=== PATIENT | female | born 1940 | race Caucasian/White ===

== ENCOUNTER → 2021-03-15 | Outpatient (CLI) | payer OTHER ==
[~2021-03-15] MED LIST: ASPI81CH PO; ATOR10; ESOM20; HYDACE5 PO; LOSA25 PO; LOSHYD PO; METO25ER PO; NORT25; Naprosyn500 MG PO; Norco 5-325 Ta1 EACH PO; Omeprazole20 M1; Prilosec Otc20 MG; Simvastatin20 MG PO; TIMO.5OPSO BOTHEYES; TRAM50 PO; VITAMIN D32000 UNI1 PO
== END ==
LOC: PLD 14:36 → LAB SHORT 14:36
DX: R21 Rash and other nonspecific skin eruption (principal)
CPT/HCPCS: 88312

== ENCOUNTER 2021-06-29 09:46 | Day surgery (SDC) | payer OTHER ==
[~2021-06-29] VITALS: Ht 165.1 cm; Wt 77.4 kg
== END 2021-06-29 14:44 | disposition home or self-care (01) ==
LOC: ORSCSDS 09:46
PROVIDERS: Internal Medicine Gastroenterology
PROC: 0DBP8ZX Excision of Rectum, Via Natural or Artificial Opening Endoscopic, Diagnostic (ICD-10-PCS; principal; 2021-06-29 13:30)
PROC: 0DBK8ZX Excision of Ascending Colon, Via Natural or Artificial Opening Endoscopic, Diagnostic (ICD-10-PCS; principal; 2021-06-29 13:30)
PROC: 0DBH8ZX Excision of Cecum, Via Natural or Artificial Opening Endoscopic, Diagnostic (ICD-10-PCS; principal; 2021-06-29 13:30)
DX: Z12.11 Encounter for screening for malignant neoplasm of colon (principal); Z86.010 Personal history of colon polyps; D12.2 Benign neoplasm of ascending colon; D12.0 Benign neoplasm of cecum; D12.8 Benign neoplasm of rectum; K57.30 Diverticulosis of large intestine without perforation or abscess without bleeding; I10 Essential (primary) hypertension; K21.9 Gastro-esophageal reflux disease without esophagitis; Z79.899 Other long term (current) drug therapy; Z79.82 Long term (current) use of aspirin
CPT/HCPCS: 82947; 88305; J2704; J7120

== ENCOUNTER → 2022-04-16 | Outpatient (CLI) | payer OTHER ==
[2022-04-16 13:52] LABS: BASOPHILS ABSOLUTE AUTO 0.04 K/mm3 (0.00-0.23); BASOPHILS PERCENT AUTO 1 % (0-2); EOSINOPHILS PERCENT AUTO 5 % (0-6); Hematocrit 36.4 % (33.0-51.0); Hemoglobin 11.9 g/dL (11.5-16.0); IMMATURE GRAN ABSOLUTE AUTO 0.01 K/mm3 (0.00-0.10); IMMATURE GRAN PERCENT AUTO 0 % (0-1); LYMPHOCYTES ABSOLUTE AUTO 1.46 K/mm3 (0.84-5.20); LYMPHOCYTES PERCENT AUTO 37 % (21-46); MONOCYTES ABSOLUTE AUTO 0.32 K/mm3 (0.16-1.47); MONOCYTES PERCENT AUTO 8 % (4-13); Mean Corpuscular HGB 29.8 pg (26.0-34.0); Mean Corpuscular HGB Conc 32.7 g/dL (31.5-36.5); Mean Corpuscular Volume 91 fL (80-100); Mean Platelet Volume 10.6 fL (9.1-12.4); NEUTROPHILS ABSOLUTE AUTO 1.94 K/mm3 (1.96-9.15); NEUTROPHILS PERCENT AUTO 49 % (41-73); Platelet Count 189 K/mm3 (150-400); RDW Coefficient Variation 14.1 % (11.7-14.2); RDW Standard Deviation 47.1 fL (35.1-46.3); Red Blood Cell Count 3.99 M/mm3 (3.80-5.20); White Blood Cell Count 3.97 K/mm3 (4.00-11.30)
[2022-04-16 14:28] LABS: Albumin, Blood 3.5 g/dL (3.4-5.0); Bilirubin, Total 0.6 mg/dL (0.1-1.0); Bun/Creatinine Ratio 16.9 (12.0-20.0); Creatinine, Blood 0.77 mg/dL (0.40-1.00); Globulin, Blood 3.5 g/dL (2.2-4.0); Potassium, Blood 4.2 mmol/L (3.5-5.5)
== END ==
LOC: LAB SHORT 13:48 → LAB 13:48
PROVIDERS: Physician Assistant
DX: M54.50 Low back pain, unspecified (principal); R35.0 Frequency of micturition
CPT/HCPCS: 80053; 85025

== ENCOUNTER 2024-12-27 09:38 | Day surgery (SDC) | payer OTHER ==
[2024-12-27] VITALS (13 sets, daily range): BP systolic 92–162; BP diastolic 62–98
[~2024-12-27] VITALS: Ht 157.5 cm; Wt 75.6 kg
[~2024-12-27 09:38] MED LIST changes: +ALEN70 PO; +ALEVAZOL56.7 G1 TOP; +ATOR10 PO; +BENADRYL25 MG PO; -LOSA25 PO; +LOSA50 PO; +LOSARTAN-HCTZ1 EACH PO; +MULVITA PO; +OMEP20ER PO; -Prilosec Otc20 MG
[2024-12-27] MEDS ORDERED: CeFAZolin Sodium 2,000 MG in NS 100 ML IV SCH ×2 (10:25→21:00)
[2024-12-27] MEDS ORDERED: Acetaminophen 500 MG Tab PO SCH ×2 (10:25→16:00)
[2024-12-27] MEDS ORDERED: Lactated Ringer's 1,000 ML IV SCH ×3 (10:25→14:15)
[2024-12-27] MEDS ORDERED: Chlorhexidine Mouth Care 15 ML UDC MT SCH (10:25)
[2024-12-27] MEDS ORDERED: Tranexamic Acid 1,000 MG in NS 100 ML IV SCH (10:25)
[2024-12-27] MEDS ORDERED: OxyCODONE HCL 10 MG TABCR PO SCH (10:25)
[2024-12-27] MEDS ORDERED: Ropivacaine 0.5% HCl/Pf 123.125 MG,EPINEPHrine HCL 0.25 MG,Ketorolac Tromethamine 15 MG... INFIL SCH (10:25)
[2024-12-27] MEDS ORDERED: Bupivacaine 0.5% HCl 5 MG/ML 30MLVIAL ONE (10:40)
[2024-12-27] MEDS ORDERED: Midazolam HCl 1MG / ML 2ML Vial ONE (10:40)
[2024-12-27] MEDS ORDERED: FentaNYL Citrate 50 MCG/ML 2 ML Injection ONE (10:40)
[2024-12-27] MEDS ORDERED: Ondansetron HCl 2 MG / ML 2ML Vial ONE (10:40)
[2024-12-27] MEDS ORDERED: propofoL 60 ML IV ONE (10:40)
[2024-12-27] MEDS ORDERED: Dexamethasone Sod Phos 10 MG/ML 1ML VIAL ONE (10:40)
[2024-12-27] MEDS ORDERED: Midazolam HCl 1MG / ML 2ML Vial IV ONE (11:10)
[2024-12-27] MEDS ORDERED: Lidocaine HCl 1% 5 ML SYR INJ ONE (11:10)
[2024-12-27] MEDS ORDERED: FentaNYL Citrate 50 MCG/ML 2 ML Injection IV PRN ×2 (11:10→11:15)
[2024-12-27] MEDS ORDERED: Ondansetron HCl 2 MG / ML 2ML Vial IV PRN ×2 (11:15→14:05)
[2024-12-27] MEDS ORDERED: Albuterol 2.5 MG/3 ML VIAL INH PRN (11:15)
[2024-12-27] MEDS ORDERED: Citric Acid/Sodium Citrate 30 ML BTL PO ONE (11:15)
[2024-12-27] MEDS ORDERED: Phenylephrine HCl 100 MCG/ML-NS 10MLSYR (1MG/10ML) ONE ×2 (13:23→14:32)
[2024-12-27] MEDS ORDERED: OxyCODONE HCL 5 MG TAB PO PRN ×2 (14:00→14:05)
[2024-12-27] MEDS ORDERED: Prochlorperazine Edisylate 10 mg Vial IV PRN (14:05)
[2024-12-27] MEDS ORDERED: Bisacodyl 10 MG Supp PR PRN (14:05)
[2024-12-27] MEDS ORDERED: HYDROmorphone HCl/Pf 1MG SYR IV PRN (14:05)
[2024-12-27] MEDS ORDERED: DiphenhydrAMINE HCL 25 MG Cap PO PRN (14:10)
[2024-12-27] MEDS ORDERED: Promethazine HCl 25 MG Tab PO PRN (14:10)
[2024-12-27] MEDS ORDERED: FLU VACC TS2024-25(6MOS UP)/PF 45 MCG/0.5 ML SYRINGE IM SCH (14:10)
[2024-12-27] MEDS ORDERED: Metoclopramide HCl 5MG / ML 2ML Vial IV PRN (14:10)
[2024-12-27] MEDS ORDERED: Magnesium Hydroxide Conc 10 ML UDC PO PRN (14:15)
[2024-12-27] MEDS ORDERED: Clotrimazole 1% Cream 15 GM Tube TOP PRN (14:15)
[2024-12-27] MEDS ORDERED: Vancomycin HCL 1,000 MG in NS 250 ML IV ONE (14:25)
[2024-12-27] MEDS ORDERED: Ketorolac Tromethamine 15mg Vial IV SCH (18:00)
--- NOTE | 2024-12-27 19:31 | NUR ---
SHIFT SUMMARY POD 0-L LEO. PRINEO DRESSING C/D/I. PT ORIGIONALLY NOT ABLE TO FEEL BLE UPON ARRIVING TO FLOOR @1600 R/T SPINAL, HOWEVER PT IS ABLE TO MOVE BLE & LIFT LEGS OFF BED NOW. DENIES N/T. CAP REFILL <3 SEC. STRONG PULSE. TOLERATING PO, DENIES N/V. REPORTS NO PAIN, MAYBE 2-01/31 IN LOW BACK R/T CHRONIC PAIN, MEDICATED W/SCHEDULED TORADOL. BS SHOWED 422 & PT HADNT VOIDED UNTIL APPROX 1900 W/200ML URINE IN BSC, TOOK 2P ASSIST W/GB & FWW. PT HASNT WORKED W/THERAPY. CALL LIGHT IN REACH.
[2024-12-27] MEDS ORDERED: Docusate Sodium 100 MG Cap PO SCH (21:00)
[2024-12-28 05:08] VITALS: BP 134/74
[2024-12-28] MEDS ORDERED: Omeprazole 20 MG CapCR PO SCH (06:00)
[2024-12-28 06:38] LABS: BASOPHILS ABSOLUTE AUTO 0.02 K/mm3 (0.00-0.23); BASOPHILS PERCENT AUTO 0 % (0-2); EOSINOPHILS PERCENT AUTO 0 % (0-6); Hematocrit 30.2 % (33.0-51.0); Hemoglobin 10.1 g/dL (11.5-16.0); IMMATURE GRAN ABSOLUTE AUTO 0.04 K/mm3 (0.00-0.10); IMMATURE GRAN PERCENT AUTO 0 % (0-1); LYMPHOCYTES ABSOLUTE AUTO 1.05 K/mm3 (0.84-5.20); LYMPHOCYTES PERCENT AUTO 10 % (21-46); MONOCYTES ABSOLUTE AUTO 0.71 K/mm3 (0.16-1.47); MONOCYTES PERCENT AUTO 7 % (4-13); Mean Corpuscular HGB 31.1 pg (26.0-34.0); Mean Corpuscular HGB Conc 33.4 g/dL (31.5-36.5); Mean Corpuscular Volume 93 fL (80-100); Mean Platelet Volume 10.5 fL (9.1-12.4); NEUTROPHILS ABSOLUTE AUTO 8.32 K/mm3 (1.96-9.15); NEUTROPHILS PERCENT AUTO 82 % (41-73); Platelet Count 189 K/mm3 (150-400); RDW Coefficient Variation 13.5 % (11.7-14.2); Red Blood Cell Count 3.25 M/mm3 (3.80-5.20); White Blood Cell Count 10.14 K/mm3 (4.00-11.30)
--- NOTE | 2024-12-28 06:42 | NUR ---
SHIFT SUMMARY POD 1 L LEO. NO ACUTE CHANGES OVERNIGHT. VSS. TOLERATING ORALS. AQUACEL C/D/I. PT REPORTS PAIN TOLERABLE, POLAR PACK IN USE, MEDICATED PER EMAR. VOIDING USING BSC. AMBULATES USING FWW c GB & 2 PERSON ASSIST. ANTICIPATED TO WORK c PHYSCIAL THERAPY THEN DISCHARGE HOME LATER TODAY. PT RESTING IN BED, CALL LIGHT IN REACH, WILL REPORT TO DAY RN.
[2024-12-28 06:53] LABS: Bun/Creatinine Ratio 30.8 (12.0-20.0); Calcium, Blood 8.5 mg/dL (8.5-10.1); Creatinine, Blood 0.78 mg/dL (0.40-1.00); Magnesium, Blood 2.1 mg/dL (1.6-2.4); Potassium, Blood 3.9 mmol/L (3.5-5.5)
[2024-12-28 07:29] VITALS: BP 140/86
[2024-12-28] MEDS ORDERED: OXAYDO5 M1 PO (08:44)
[2024-12-28] MEDS ORDERED: ASPI81CH PO (08:51)
[2024-12-28] MEDS ORDERED: SULTRIDS PO (08:52)
[2024-12-28] MEDS ORDERED: Losartan Potassium 50 MG Tab PO SCH (09:00)
[2024-12-28] MEDS ORDERED: Aspirin 81 MG Chew PO SCH (09:00)
[2024-12-28] MEDS ORDERED: Atorvastatin 10 MG Tab PO SCH (09:00)
[2024-12-28] MEDS ORDERED: Timolol 0.5% Opth Soln 5 ML BOTHEYES SCH (09:00)
--- NOTE | 2024-12-28 12:31 | NUR ---
DISCHARGE SUMMARY POD1 R LEO, A/OX4, VSS, TOLERATING PO, PAIN MANAGED PER EMAR, AMBULATING WELL THOUGH SHE MOVES SLOW. DISCUSSED SAFETY WITH AMBULATION BEING MORE IMPORTANT THAN SPEED. PRINEO DRESSING IN PLACE C/D/I. PT REPORTS NOT HAVING HER DENTURES AND HER AND HER DAUGHTER BOTH STATE THE LAST PLACE THEY WERE SEEN WAS IN PACU. THIS RN AND TUG BOAT ENGINEER CHECKED HER ROOM AND WERE UNABLE TO LOCATE THEM. DISCUSSED DISCHARGE INSTRUCTIONS WITH HER INCLUDING HOME CARE, MEDICATIONS, AND FOLLOW UP APPOINTMENTS. NO QUESTIONS AT THIS TIME, ESCORTED OUT BY WC TO PRIVATE AUTO TO GO HOME.
== END 2024-12-28 12:00 | disposition home or self-care (01) ==
LOC: ORSCMMR 09:38 → ORD 11:30 → ORSCMMR 11:30 → ORD 12:30 → SURS 15:53 → ORSCMMR 12-28 12:00 → ORD 01-24 07:30
PROVIDERS: Orthopaedic Surgery
PROC: 0SRB0JA Replacement of Left Hip Joint with Synthetic Substitute, Uncemented, Open Approach (ICD-10-PCS; principal; 2024-12-28)
DX: M16.12 Unilateral primary osteoarthritis, left hip (principal); M25.552 Pain in left hip; F32.A Depression, unspecified; K21.9 Gastro-esophageal reflux disease without esophagitis; I10 Essential (primary) hypertension; D64.9 Anemia, unspecified; E78.5 Hyperlipidemia, unspecified; I48.91 Unspecified atrial fibrillation; G47.33 Obstructive sleep apnea (adult) (pediatric); Z79.82 Long term (current) use of aspirin; Z79.899 Other long term (current) drug therapy
CPT/HCPCS: 36415; 72170; 80048; 83735; 85025; 97110; 97116; 97162; A6010; A9270; C1776; J0171; J0690; J0735; J1100; J1885; J2250; J2371; J2405; J2704; J2795; J3010; J3370; J7050; J7120